=== PATIENT | female | born 2000 | race Caucasian/White ===

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

== ENCOUNTER 2019-01-21 00:39 | Emergency (ER) | payer MEDICAID, OTHER ==
[2019-01-21] MEDS: LIDOCAINE 1% (MPF) 5 ML VIAL INFIL (02:23)
== END 2019-01-21 04:15 | disposition home or self-care (01) ==
LOC: FTE 00:39
DX: L60.0 Ingrowing nail (principal); J45.909 Unspecified asthma, uncomplicated
CPT/HCPCS: 11750; 99283-25